=== PATIENT | female | born 1990 | race American Indian/Alaskan Native ===

== ENCOUNTER 2022-06-18 21:51 | Emergency (ER) | payer OTHER, SELFPAY ==
[2022-06-18 21:55] VITALS: BP 152/82; PULSE 88; RESP 18; TEMP 36.4; O2SAT 97; BMI 56.6
--- NOTE | 2022-06-18 22:11 | ED_ITS ---
HPI - Wound/Laceration General Chief Complaint: Laceration/Wound Stated Complaint: cut her lft pointer finger Time Seen by Provider: 06/18/22 21:54 History of Present Illness HPI narrative: Patient is a 32-year-old woman who is up-to-date on her vaccinations who inadvertently sliced the left index finger on the lateral aspect well making [employer] cutting up onions tonight. Patient suffered a flap injury with good approximation between the PIP and D IP joint. Bleeding has been stopped. She has no other neurovascular defects. She has full range of motion of her hand. No signs of infection. Wound was aggressively cleaned. Patient has no other significant injuries. Related Data Home Medications Medication Instructions Recorded Confirmed tizanidine 4 mg tablet 4 mg PO 3XD PRN muscle spasm 06/18/22 06/18/22 Previous Rx's Medication Instructions Recorded tizanidine 4 mg capsule 4 mg PO TID PRN muscle spasticity 12/23/21 #30 caps Allergies Allergy/AdvReac Type Severity Reaction Status Date / Time No Known Drug Allergies Allergy Verified 12/23/21 14:12 Review of Systems Status of ROS: Reports: 6 or more systems reviewed and unremarkable except as noted in History and below PFSH PFSH Medical History History of tobacco use ?Z87.891 - Personal history of nicotine dependence (ICD-10) Surgical History Status post bunionectomy ?Z98.890 - Other specified postprocedural states (ICD-10) Social History Smoking Status: Former smoker Do you use any of these nicotine containing products: None Second hand tobacco smoke exposure: No How often do you have a drink containing alcohol: 2-4 times a month How many standard drinks containing alcohol do you have on a typical day: 1 or 2 How often do you have six or more drinks on one occasion: Never AUDIT-C Alcohol total score: 2 Non-prescribed substance use: denies use Exam Narrative: Exam Narrative: EXAM GENERAL: Patient appears comfortable and well. EYES: No scleral icterus. ENT: Tympanic membranes and oropharynx normal. THYROID: no thyroid nodules or thyromegaly. LYMPH: No supraclavicular or cervical lymphadenopathy. SKIN: Flap injury seen on the left index finger as noted above. Approximate 1.5 cm in length. EXT: No dependent lower extremity pedal edema. HEART: Regular rate and rhythm with no murmurs, rubs, or gallops. LUNGS: Clear to auscultation bilaterally with no crackles or wheezes. ABD: Soft, non tender, non distended. PSYCH: Good eye contact, speech is not pressured. Const: Vital Signs, click to edit/add: Vital Signs - 24 hr 06/18/22 21:55 06/18/22 22:20 Temperature 97.5 F L Pulse Rate [Pulse Oximeter] 88 76 Respiratory Rate 18 18 Blood Pressure [Le ft Upper Arm] 152/82 H 127/77 Pulse Oximetry 97 97 Oxygen Delivery Me thod Room Air Room Air Course Vital Signs Vital signs: Initial Vital Signs Temperature 97.5 F L 06/18/22 21:55 Temperature Source Temporal Artery Scan 06/18/22 21:55 Pulse Rate 88 06/18/22 21:55 Pulse Rhythm Regular 06/18/22 21:55 Respiratory Rate 18 06/18/22 21:55 Blood Pressure 152/82 H 06/18/22 21:55 Blood Pressure Mean 105 06/18/22 21:55 Pulse Oximetry 97 06/18/22 21:55 Oxygen Delivery Method Room Air 06/18/22 21:55 Vital Signs Temperature 97.5 F L 06/18/22 21:55 Pulse Rate 88 06/18/22 21:55 Respiratory Rate 18 06/18/22 21:55 Blood Pressure 152/82 H 06/18/22 21:55 Pulse Oximetry 97 06/18/22 21:55 Oxygen Delivery Method Room Air 06/18/22 21:55 Temperature 97.5 F L 06/18/22 21:55 Pulse Rate 76 06/18/22 22:20 Respiratory Rate 18 06/18/22 22:20 Blood Pressure 127/77 06/18/22 22:20 Pulse Oximetry 97 06/18/22 22:20 Oxygen Delivery Method Room Air 06/18/22 22:20 MDM - Wound/Laceration MDM Narrative Medical decision making narrative: Patient is a 32-year-old woman who comes in with a laceration on the left hand index finger. The wound was cleaned and Dermabond was applied. She was instructed on wound care. She is up-to-date on her tetanus shot will follow-up with her primary physician as needed. Differential Diagnosis Differential diagnosis: Likely laceration, abscess, abrasion and avulsion of skin Discharge Plan Discharge Clinical Impression: Laceration Patient Disposition: Home, Self-Care Condition: Stable Instructions: Finger Laceration (ED) Additional Instructions: Keep wound clean Watch for signs of infection Follow-up with primary physician as needed. Activity Level: No Restrictions Discharge Diet: Regular Prescriptions: No Action tizanidine 4 mg capsule 4 mg PO TID PRN (Reason: muscle spasticity) Qty: 30 2RF tizanidine 4 mg tablet 4 mg PO 3XD PRN (Reason: muscle spasm) Follow Up/Referrals: Alessandro Martinez MD [Primary Care Provider] - Stand Alone Forms: [employer] Info Instructions
[2022-06-18 22:20] VITALS: BP 127/77; PULSE 76; RESP 18; O2SAT 97
== END 2022-06-18 22:38 | disposition home or self-care (01) ==
LOC: ED 22:19
PROVIDERS: Emergency Provider Internal Medicine; PCP Family Medicine
DX: S61.211A Laceration without foreign body of left index finger without damage to nail, initial encounter (principal); W26.0XXA Contact with knife, initial encounter
CPT/HCPCS: 12001; 99283

== ENCOUNTER 2025-01-29 11:40 | Outpatient (CLI) | payer OTHER, SELFPAY | END 2025-01-29 11:41 | disposition home or self-care (01) | LOC: NFLDREF 02-03 04:35 | PROVIDERS: PCP Family Medicine; Referring Provider Family Medicine; Visit Provider Family Medicine | DX: Z13.1 Encounter for screening for diabetes mellitus (principal); Z13.6 Encounter for screening for cardiovascular disorders | CPT/HCPCS: 80048; 80061; 84681 ==

== ENCOUNTER 2025-02-04 18:05 | Outpatient (CLI) | payer OTHER, SELFPAY ==
--- NOTE | 2025-02-04 18:15 | CRLHL7_ITS ---
For Patients: As a result of the 21st Century Cures Act, medical imaging exams and procedure reports are released immediately into your electronic medical record. You may view this report before your referring provider. If you have questions, please contact your health care provider. CLINICAL INDICATION: Right knee pain. COMPARISON STUDIES: Radiographs 10/16/2024. TECHNICAL: Noncontrast MRI of the right knee. Wrap coil was utilized to accommodate patient body habitus. 1.5 josefina MRI scanner. Axial, sagittal and coronal T1, PD, PD FS, T2 fat-sat and STIR images. FINDINGS: Examination is mildly limited by patient body habitus. MEDIAL COMPARTMENT: Medial Meniscus: There is moderate medial extrusion of the medial meniscal body without a discrete meniscal tear. Posterior horn root region of the medial meniscus is best evaluated on the sagittal T2 fat-sat images were it appears intact. Articular Cartilage: Mild to moderate thinning of the articular cartilage (grade 2). LATERAL COMPARTMENT: Lateral Meniscus: Intact. Articular Cartilage: Mild thinning of the articular cartilage (grade 1/2). PATELLOFEMORAL COMPARTMENT: Articular Cartilage: Small focus of subchondral bone marrow edema underlying the medial patellar facet on axial PD fat-sat image number 10 of series 4 likely relates to a limited area of grade 4 full-thickness cartilage abnormality. The trochlear articular cartilage is maintained. LIGAMENTS: Anterior Cruciate Ligament: Intact. Posterior Cruciate Ligament: Intact. MEDIAL COLLATERAL LIGAMENT AND POSTEROMEDIAL CORNER COMPLEX: Medial Collateral Ligament: Intact. Medial Head of the Gastrocnemius and Semimembranosus Tendons: Normal. LATERAL COLLATERAL LIGAMENT COMPLEX AND POSTEROLATERAL CORNER COMPLEX: Fibular Collateral Ligament: Intact. Distal Biceps Femoris Tendon Complex: Intact. Iliotibial Band: Mild chronic thickening of the IT band at the distal femoral level. Popliteus Tendon: Intact. Posterolateral Corner Capsule: No defect. EXTENSOR MECHANISM: Distal Quadriceps Tendon: Intact. Patellar Tendon: Intact. Medial Patellar Retinaculum and Medial Patellofemoral Ligament: Intact. Lateral Patellar Retinaculum: Intact. Normal patellar alignment. No patella praveen. Normal trochlear depth. Normal lateral trochlear inclination. JOINT SPACE AND CAPSULE: Moderate joint effusion. No joint bodies. BONES AND SOFT TISSUES: No acute fracture or avascular necrosis.No significant popliteal cyst. IMPRESSION: 1. Degenerative changes of the right knee with [id number] medial compartment articular cartilage wear, mild lateral compartment articular cartilage wear and a small area of limited grade 4 full-thickness cartilage abnormality involving the medial patellar facet. 2. Moderate medial extrusion of the medial meniscal body without a discrete meniscal tear. 3. Moderate joint effusion. 4. No fracture or ligament disruption. Dictated by Russ Roe MD @ 02/05/2025 11:05:13 AM (Electronically Signed)
== END 2025-02-04 18:06 | disposition home or self-care (01) ==
LOC: MRI 18:07
PROVIDERS: PCP Family Medicine; Visit Provider Family Medicine
DX: M17.11 Unilateral primary osteoarthritis, right knee (principal); M25.561 Pain in right knee; M22.41 Chondromalacia patellae, right knee; M23.331 Other meniscus derangements, other medial meniscus, right knee; M25.461 Effusion, right knee
CPT/HCPCS: 73721